=== PATIENT | male | born 1960 | race Caucasian/White ===

== ENCOUNTER → 2017-05-04 | Outpatient (CLI) | payer MEDICARE ==
[2017-05-04 11:12] LABS: HEMOGLOBIN 15.7 gm/dl (14.0-17.5); RED BLOOD COUNT 5.11 M/UL (4.20-5.50); WHITE BLOOD COUNT 8.9 K/UL (4.5-11.0)
[2017-05-04 11:48] LABS: BUN/CREATININE RATIO 28 (0-10)
== END ==
LOC: LAB 09:51
PROVIDERS: Family Medicine
DX: Z12.5 Encounter for screening for malignant neoplasm of prostate (principal); E29.1 Testicular hypofunction; E78.5 Hyperlipidemia, unspecified; E11.22 Type 2 diabetes mellitus with diabetic chronic kidney disease; N18.9 Chronic kidney disease, unspecified; E55.9 Vitamin D deficiency, unspecified
CPT/HCPCS: 36415; 80053; 80061; 82043; 83001; 83002; 84402; 84403; 84439; 84443; 84550; 84681; 85027; G0103

== ENCOUNTER → 2020-10-12 | Outpatient (CLI) | payer MEDICARE | LOC: LAB 12:09 | DX: R97.20 Elevated prostate specific antigen [PSA] (principal) | CPT/HCPCS: 36415; 84153 ==

== ENCOUNTER → 2020-10-26 | Outpatient (CLI) | payer MEDICARE | LOC: LAB 13:02 | DX: C61 Malignant neoplasm of prostate (principal) | CPT/HCPCS: 36415; 84153 ==

== ENCOUNTER → 2020-11-19 | Outpatient (CLI) | payer MEDICARE | LOC: LAB 11:02 | DX: N39.0 Urinary tract infection, site not specified (principal) | CPT/HCPCS: 87086 ==